=== PATIENT | male | born 1960 | race Caucasian/White ===

== ENCOUNTER → 2018-10-18 | Outpatient (CLI) | payer BC ==
--- NOTE | 2018-10-18 17:40 | Diagnostic Imaging Report ---
PROCEDURE: CT sinuses without contrast. TECHNIQUE: Multiple contiguous axial images were obtained through the sinuses without the use of intravenous contrast. Coronal and sagittal reformations were then performed. Auto Exposure Controls were utilized during the CT exam to meet ALARA standards for radiation dose reduction. INDICATION: Chronic sinusitis. FINDINGS: The frontal, ethmoid, and sphenoid sinuses are clear. There is minimal mucosal thickening in the right maxillary sinus. The left maxillary sinus is clear. The ostiomeatal complexes are patent. There is no zeyad bullosa. There is some rightward deviation of the nasal septum. The mastoid air cells are clear. The nasopharyngeal soft tissues are symmetric and without mass effect. Parotid glands are unremarkable. IMPRESSION: 1. Minimal mucosal thickening in the right maxillary sinus. 2. Right convexity deviation of the nasal septum. Dictated by: Dictated on workstation # [id number]
== END ==
LOC: RAD FS 10:34
PROVIDERS: ATTEND Otolaryngology Otolaryngology/Facial Plastic Surgery
DX: J34.2 Deviated nasal septum (principal); J32.9 Chronic sinusitis, unspecified
CPT/HCPCS: 70486

== ENCOUNTER 2019-09-18 05:41 | Outpatient (RCR) | payer BC ==
[~2019-09-18] VITALS: Ht 177.8 cm; Wt 93.2 kg
[2019-09-18] MEDS ORDERED: LOSA25TA41 PO (13:35)
[2019-09-18] MEDS ORDERED: ATEN25TA PO (13:35)
== END 2019-12-17 | disposition home or self-care (01) ==
LOC: PREOP 05:41
PROVIDERS: ATTEND Surgery
DX: Z01.818 Encounter for other preprocedural examination (principal)